=== PATIENT | female | born 1940 | race Caucasian/White ===

== ENCOUNTER 2018-01-07 12:01 | Inpatient (IN) ==
[2018-01-07] MEDS ORDERED: *HR* Dextrose 50 % in Water (Syg) 50 ML SYRINGE IVP PRN ×2 (12:09→15:11)
--- NOTE | 2018-01-07 12:15 | Emergency Department Note ---
Disposition Clinical Impression: JARETT (acute kidney injury), Elevated troponin, Acute hyponatremia, Cough DKA (diabetic ketoacidoses) Qualifiers: Diabetes mellitus type: type 1 Diabetes mellitus complication detail: without coma Qualified Code(s): E10.10 - Type 1 diabetes mellitus with ketoacidosis without coma Pneumonia Qualifiers: Pneumonia type: due to unspecified organism Laterality: bilateral Lung location : lower lobe of lung Qualified Code(s): J18.1 - Lobar pneumonia, unspecified organism Anemia Qualifiers: Anemia type: unspecified type Qualified Code(s): D64.9 - Anemia, unspecified Disposition: Admitted As Inpatient Condition: Serious Referrals: NONE,PCP [Primary Care Provider] - Forms: ED Satisfaction Letter, Work/School Release Time of Disposition: 14:37 General Adult HPI - General Chief complaint: ED General Medical Stated complaint: High glucose/fall Time Seen by Provider: 01/07/18 12:09 Source: patient, EMS Mode of arrival: EMS Limitations: no limitations Nursing Notes Reviewed: Yes Vital Signs Reviewed: Yes - History of Present Illness HPI Narrative: 77-year-old female insulin-dependent diabetic on an insulin pump states that she had a chest cold a few days ago and is continued to cough. The patient states that one day ago she had 2 falls with the first one being where she fell backward. She is unsure if she had her head denies LOC. The patient states that she is unsure why she fell but she did not syncopized and she did not trip on anything. In addition the patient's noted that her glucose was very elevated today with pressure being in the 500s. She called EMS at that time. The patient is alert and oriented to person and place but does seem a little confused about her history about what is going on today. The patient denies any other complaints other than a headache as well as a chest cold. Patient is coughing and states every time she coughs. Her head also hurts. She denies any anticoagulation. She denies any other complaints at this time including chest pain, difficulty breathing, abdominal pain. She admits to nausea. Patient denies any other complaints. - Related Data Home Medications Medication Instructions Recorded Confirmed Lisinopril [Lisinopril] 2.5 mg PO DAILY 01/07/18 01/07/18 Simvastatin [Zocor] 40 mg PO QPM 01/07/18 01/07/18 Tramadol HCl [Ultram] 50 mg PO BID PRN 01/07/18 01/07/18 Allergies Allergy/AdvReac Type Severity Reaction Status Date / Time aspirin [ASA] AdvReac Gastrointestinal Verified 01/07/18 12:08 Upset All systems ED: reviewed and negative except as stated. Constitutional: Reports: weakness. Denies: fever, chills ENT ED: Denies: congestion Cardiovascular: Denies: chest pain Respiratory: Reports: cough, dyspnea, sputum production. Denies: wheezes, hemoptysis Gastrointestinal: Reports: nausea. Denies: abdominal pain, vomiting, diarrhea, constipation, hematemesis, melena, hematochezia Genitourinary: Denies: urgency, dysuria Musculoskeletal: Denies: back pain, neck pain, arthralgia, myalgia Integumentary: Denies: rash Neurological: Reports: headache, weakness. Denies: numbness, paresthesias, confusion Past Medical History - Past Medical History Attestation: Yes The following information was validated with the patient. Source: patient, old records reviewed Medical history: Reports: diabetes Surgical history: Reports: non-contributory Psychiatric history: Reports: no psych history - Social History Smoking Status: Former smoker Alcohol use: Reports: none Drug use: Reports: none Physical Exam - General Limitations: no limitations General appearance: alert, in no apparent distress - Head Head exam: atraumatic, normocephalic, normal inspection - Eye Eye exam: Present: normal appearance, PERRL, EOMI - ENT ENT exam: normal exam, normal oropharynx, mucous membranes moist - Neck Neck exam: Present: normal inspection, full ROM, trachea midline - Chest Chest inspection: Present: normal inspection, symmetric chest wall rise - Respiratory Respiratory exam: Present: normal lung sounds bilaterally - Cardiovascular Cardiovascular exam: Present: regular rate, normal rhythm, normal heart sounds - Abdominal Exam Abdominal exam: Present: soft, Non-Tender. Absent: tenderness, distention, guarding, rebound, rigidity - Extremities Exam Extremities exam: Present: normal inspection, full ROM. Absent: tenderness, pedal edema - Neurological Exam Neurological exam: Present: alert - Expanded Neurological Exam Patient oriented to: Present: person, place Speech: Present: fluid speech Cranial nerves: EOM function (II, III, IV, ): Normal, facial sensation (V): Normal, facial palsy (VII): Normal Motor strength - LUE: 5/5 Motor strength - RUE: 5/5 Motor strength - LLE: 5/5 Motor strength - RLE: 5/5 Sensory exam upper extremity: light touch: Normal Sensory exam lower extremity: light touch: Normal Coma Scale Eye Opening: Spontaneous Coma Scale Motor Response: Obeys Commands Coma Scale Verbal Response: Oriented Coma Scale Total: 15 - Skin Skin exam: Present: warm, dry, intact, normal color Course Vital Signs Temperature 98.7 F 01/07/18 12:08 Pulse Rate 103 01/07/18 12:08 Respiratory Rate 18 01/07/18 12:08 Blood Pressure 127/70 01/07/18 12:08 O2 Sat by Pulse Oximetry 99 01/07/18 12:08 Temperature 98.7 F 01/07/18 12:08 Pulse Rate 103 01/07/18 12:08 Respiratory Rate 18 01/07/18 12:08 Blood Pressure 127/70 01/07/18 12:08 O2 Sat by Pulse Oximetry 99 01/07/18 12:08 Oxygen Delivery Oxygen Delivery Room Air Medical Decision Making - MDM Narrative Medical decision making narrative: Patient's workup in the emergency department demonstrates findings consistent with ketosis. The patient has an anion gap of 18-20. The patient is mildly acidotic. Patient does have an acute kidney injury as well. No previous record of kidney function. The patient is a mildly elevated troponin given the acute kidney injury we will continue to trend her troponins before the decision of heparin will be made. The patient was made aware and agrees to plan. Head CT and cervical spine CT demonstrated no acute process. We will place the patient on insulin drip at 0.1 units/KG per hour. The patient was given a second liter of fluid. She is resting comfortably at this time. Accepted by Dr. Gonzales. - Lab Data Lab results reviewed: Yes I reviewed the patient's lab results. Result diagrams: 01/07/18 12:56 01/07/18 12:56 Lab Results 01/07/18 01/07/18 01/07/18 Range/Units 12:56 12:56 12:56 WBC 7.5 (4.3-11.1) K/mcL RBC 3.42 L (3.82-4.97) M/mcL Hgb 10.8 L (11.5-15.4) g/dL Hct 32.2 L (35.3-44.9) % MCV 94.2 (83.0-100.0) fL MCH 31.6 (28.0-33.3) pg MCHC 33.5 (31.6-35.5) g/dL RDW 13.3 (11.5-14.5) % Plt Count 149 (140-400) K/mcL MPV 10.8 (9.4-12.4) fL Immature Gran % 0.9 (0-4) % Seg Neutrophils % 84.7 % Lymphocytes % 6.9 % Monocytes % 7.4 % Eosinophils % 0.0 % Basophils % 0.1 % Neutrophils # 6.4 (1.6-8.9) K/mcL Lymphocytes # 0.5 L (0.6-4.6) K/mcL Monocytes # 0.6 (0.0-1.3) K/mcL Eosinophils # 0.0 (0.0-0.6) K/mcL Basophils # 0.0 (0.0-0.2) K/mcL VBG pH (7.32-7.42) pH Units VBG pCO2 (41-51) mmHg VBG pO2 (25-50) mmHg VBG HCO3 (21-27) mEq/L Sodium 129 L (136-145) mEq/L Potassium 4.4 (3.5-5.1) mEq/L Chloride 94 L (98-107) mEq/L Carbon Dioxide 17 L (23-29) mEq/L BUN 48 H (8-23) mg/dL Creatinine 1.21 H (0.60-1.20) mg/dL Est GFR ( Amer) 52 L (> 60) Est GFR (Non-Af Amer) 43 L (> 60) BUN/Creatinine Ratio 40 H (6-26) Glucose 509 H* (70-105) mg/dL Calculated Osmolality 303 H (280-300) Lactic Acid (0.5-2.2) mmol/L Calcium 8.8 (8.6-10.3) mg/dL Magnesium 2.0 (1.6-2.6) mg/dL Troponin I 0.05 H* (< 0.04) ng/mL Beta-Hydroxybutyric Acd > 2.00 H (0.02-0.27) mmol/L Urine Color (Yellow) Urine Clarity (Clear) Urine pH (5.0-8.0) pH Units Ur Specific [place] (1.010-1.025) Urine Protein (Neg-Trace) mg/dL Urine Glucose (UA) (Normal) mg/dL Urine Ketones (Negative) mg/dL Urine Blood (Negative) Urine Nitrite (Negative) Urine Bilirubin (Negative) Urine Urobilinogen (Normal) mg/dL Ur Leukocyte Esterase (Negative) Urine Microscopic RBC (0-3) per hpf Urine Microscopic WBC (0-3) per hpf Ur Squamous Epith Cells (None-Few) per lpf Urine Bacteria (None-Few) per hpf Hyaline Casts (None-Few) per lpf Ur Culture Indicated? (NO) 01/07/18 01/07/18 01/07/18 Range/Units 12:56 13:14 13:30 WBC (4.3-11.1) K/mcL RBC (3.82-4.97) M/mcL Hgb (11.5-15.4) g/dL Hct (35.3-44.9) % MCV (83.0-100.0) fL MCH (28.0-33.3) pg MCHC (31.6-35.5) g/dL RDW (11.5-14.5) % Plt Count (140-400) K/mcL MPV (9.4-12.4) fL Immature Gran % (0-4) % Seg Neutrophils % % Lymphocytes % % Monocytes % % Eosinophils % % Basophils % % Neutrophils # (1.6-8.9) K/mcL Lymphocytes # (0.6-4.6) K/mcL Monocytes # (0.0-1.3) K/mcL Eosinophils # (0.0-0.6) K/mcL Basophils # (0.0-0.2) K/mcL VBG pH 7.37 (7.32-7.42) pH Units VBG pCO2 29 L (41-51) mmHg VBG pO2 78 H (25-50) mmHg VBG HCO3 17 L (21-27) mEq/L Sodium (136-145) mEq/L Potassium (3.5-5.1) mEq/L Chloride (98-107) mEq/L Carbon Dioxide (23-29) mEq/L BUN (8-23) mg/dL Creatinine (0.60-1.20) mg/dL Est GFR ( Amer) (> 60) Est GFR (Non-Af Amer) (> 60) BUN/Creatinine Ratio (6-26) Glucose (70-105) mg/dL Calculated Osmolality (280-300) Lactic Acid 2.0 (0.5-2.2) mmol/L Calcium (8.6-10.3) mg/dL Magnesium (1.6-2.6) mg/dL Troponin I (< 0.04) ng/mL Beta-Hydroxybutyric Acd (0.02-0.27) mmol/L Urine Color Yellow (Yellow) Urine Clarity Cloudy A (Clear) Urine pH 5.0 (5.0-8.0) pH Units Ur Specific [place] 1.029 H (1.010-1.025) Urine Protein Negative (Neg-Trace) mg/dL Urine Glucose (UA) >=1000 H (Normal) mg/dL Urine Ketones 80 H (Negative) mg/dL Urine Blood Negative (Negative) Urine Nitrite Negative (Negative) Urine Bilirubin Negative (Negative) Urine Urobilinogen Normal (Normal) mg/dL Ur Leukocyte Esterase Negative (Negative) Urine Microscopic RBC 5-15 H (0-3) per hpf Urine Microscopic WBC 0-3 (0-3) per hpf Ur Squamous Epith Cells Many H (None-Few) per lpf Urine Bacteria None Seen (None-Few) per hpf Hyaline Casts None Seen (None-Few) per lpf Ur Culture Indicated? NO (NO) - Radiology Data Radiology results reviewed: Yes I reviewed the patient's radiology results. Chest X-Ray 01/07/18 12:09 IMPRESSION: Mild bibasilar opacity, atelectasis versus pneumonia. D/ / Maico Murcia MD / Maico Murcia MD Interpreting Provider: Maico Murcia MD - EKG Data EKG #1 EKG attestation: Yes I reviewed and interpreted this EKG. EKG results narrative: Heart rate 94 beats for minute. Normal sinus rhythm. No ST elevation or ST depression noted. No previous EKG on record.
[2018-01-07 13:10] LABS: Basophils % 0.1 %; Hematocrit 32.2 % (35.3-44.9); Hemoglobin 10.8 g/dL (11.5-15.4); Immature Granulocytes % 0.9 % (0-4); Lymphocytes # 0.5 K/mcL (0.6-4.6); Lymphocytes % 6.9 %; Mean Corpuscular HGB Conc 33.5 g/dL (31.6-35.5); Mean Corpuscular Hemoglobin 31.6 pg (28.0-33.3); Mean Corpuscular Volume 94.2 fL (83.0-100.0); Mean Platelet Volume 10.8 fL (9.4-12.4); Monocytes # 0.6 K/mcL (0.0-1.3); Monocytes % 7.4 %; Neutrophils # 6.4 K/mcL (1.6-8.9); Platelet Count 149 K/mcL (140-400); Red Blood Count 3.42 M/mcL (3.82-4.97); Red Cell Distribution Width 13.3 % (11.5-14.5); Segmented Neutrophils % 84.7 %
[2018-01-07] MEDS ORDERED: 0.9 % Sodium Chloride 1,000 ML IVC ONE ×2 (13:20→13:21)
[2018-01-07 13:32] LABS: VBG HCO3 17 mEq/L (21-27); VBG PCO2 29 mmHg (41-51); VBG PH 7.37 pH Units (7.32-7.42); VBG PO2 78 mmHg (25-50)
--- NOTE | 2018-01-07 13:33 | Emergency Department Note ---
Disposition Clinical Impression: JARETT (acute kidney injury), Elevated troponin, Acute hyponatremia, Cough DKA (diabetic ketoacidoses) Qualifiers: Diabetes mellitus type: type 1 Diabetes mellitus complication detail: without coma Qualified Code(s): E10.10 - Type 1 diabetes mellitus with ketoacidosis without coma Pneumonia Qualifiers: Pneumonia type: due to unspecified organism Laterality: bilateral Lung location : lower lobe of lung Qualified Code(s): J18.1 - Lobar pneumonia, unspecified organism Anemia Qualifiers: Anemia type: unspecified type Qualified Code(s): D64.9 - Anemia, unspecified Disposition: Admitted As Inpatient Condition: Serious General Adult HPI - General Chief complaint: ED General Medical Stated complaint: High glucose/fall Time Seen by Provider: 01/07/18 12:09 Source: patient, EMS Mode of arrival: EMS Limitations: no limitations Nursing Notes Reviewed: Yes Vital Signs Reviewed: Yes - History of Present Illness HPI Narrative: I, Santy Burgos, examined this patient and my medical decision-making was reviewed with the CABINET WORKER/PA/Advanced Practice Nurse/Resident Physician. I agree with the documented findings, disposition and treatment plan as described except to the extent set forth below. 77-year-old female presents emergency Department with concerns of hyperglycemia. Family states patient has-been "sick" over the past 2-3 days with mild nausea. She fell this morning out of her bed. She is unable to give a good history regarding her case and presentation. Family states that she is become hyperglycemic the past with this she does not have a significant history of DKA. Patient has an insulin pump which she states has been functioning well and denies missing any of her doses of insulin. No other changes in her medications. No recent trauma. Patient denies chest pain, shortness of breath , cough, palpitations. Patient is fatigued during the exam, falling asleep in between questions. Initial blood sugar was greater than 500. Laboratory evaluation pending at this time patient will likely be admitted to the hospital for further evaluation of her altered mental status and hyperglycemia with concerns for DKA versus HHS. We will attempt to find the etiology of the patient's hyperglycemia. Pain Scale: 5 - Related Data Home Medications Medication Instructions Recorded Confirmed Lisinopril [Lisinopril] 2.5 mg PO DAILY 01/07/18 01/07/18 Simvastatin [Zocor] 40 mg PO QPM 01/07/18 01/07/18 Tramadol HCl [Ultram] 50 mg PO BID PRN 01/07/18 01/07/18 Allergies Allergy/AdvReac Type Severity Reaction Status Date / Time aspirin [ASA] AdvReac Gastrointestinal Verified 01/07/18 12:08 Upset Constitutional: Reports: weakness. Denies: fever, chills ENT ED: Denies: congestion Cardiovascular: Denies: chest pain Respiratory: Reports: cough, dyspnea, sputum production. Denies: wheezes, hemoptysis Gastrointestinal: Reports: nausea. Denies: abdominal pain, vomiting, diarrhea, constipation, hematemesis, melena, hematochezia Genitourinary: Denies: urgency, dysuria Musculoskeletal: Denies: back pain, neck pain, arthralgia, myalgia Integumentary: Denies: rash Neurological: Reports: headache, weakness. Denies: numbness, paresthesias, confusion Past Medical History - Past Medical History Medical history: Reports: diabetes Surgical history: Reports: non-contributory Psychiatric history: Reports: no psych history - Social History Smoking Status: Former smoker Smokeless Tobacco Status: No Alcohol use: Reports: none Drug use: Reports: none Physical Exam - General Limitations: no limitations General appearance: alert, in no apparent distress Course Vital Signs Temperature 98.7 F 01/07/18 12:08 Pulse Rate 103 01/07/18 12:08 Respiratory Rate 18 01/07/18 12:08 Blood Pressure 127/70 01/07/18 12:08 O2 Sat by Pulse Oximetry 99 01/07/18 12:08 Temperature 98.9 F 01/07/18 22:15 Pulse Rate 90 01/07/18 22:15 Respiratory Rate 20 01/07/18 22:15 Blood Pressure 122/62 01/07/18 22:15 O2 Sat by Pulse Oximetry 96 01/07/18 22:15 Oxygen Delivery Oxygen Delivery Room Air Medical Decision Making - Lab Data Result diagrams: 01/07/18 12:56 01/07/18 21:56 Lab Results 01/07/18 01/07/18 01/07/18 Range/Units 12:09 12:10 12:56 WBC 7.5 (4.3-11.1) K/mcL RBC 3.42 L (3.82-4.97) M/mcL Hgb 10.8 L (11.5-15.4) g/dL Hct 32.2 L (35.3-44.9) % MCV 94.2 (83.0-100.0) fL MCH 31.6 (28.0-33.3) pg MCHC 33.5 (31.6-35.5) g/dL RDW 13.3 (11.5-14.5) % Plt Count 149 (140-400) K/mcL MPV 10.8 (9.4-12.4) fL Immature Gran % 0.9 (0-4) % Seg Neutrophils % 84.7 % Lymphocytes % 6.9 % Monocytes % 7.4 % Eosinophils % 0.0 % Basophils % 0.1 % Neutrophils # 6.4 (1.6-8.9) K/mcL Lymphocytes # 0.5 L (0.6-4.6) K/mcL Monocytes # 0.6 (0.0-1.3) K/mcL Eosinophils # 0.0 (0.0-0.6) K/mcL Basophils # 0.0 (0.0-0.2) K/mcL VBG pH (7.32-7.42) pH Units VBG pCO2 (41-51) mmHg VBG pO2 (25-50) mmHg VBG HCO3 (21-27) mEq/L Sodium (136-145) mEq/L Potassium (3.5-5.1) mEq/L Chloride (98-107) mEq/L Carbon Dioxide (23-29) mEq/L BUN (8-23) mg/dL Creatinine (0.60-1.20) mg/dL Est GFR ( Amer) (> 60) Est GFR (Non-Af Amer) (> 60) BUN/Creatinine Ratio (6-26) Glucose (70-105) mg/dL POC Glucose 482 H* 507 H* (70-99) mg/dL Calculated Osmolality (280-300) Lactic Acid (0.5-2.2) mmol/L Calcium (8.6-10.3) mg/dL Magnesium (1.6-2.6) mg/dL Troponin I (< 0.04) ng/mL Beta-Hydroxybutyric Acd (0.02-0.27) mmol/L Urine Color (Yellow) Urine Clarity (Clear) Urine pH (5.0-8.0) pH Units Ur Specific [place] (1.010-1.025) Urine Protein (Neg-Trace) mg/dL Urine Glucose (UA) (Normal) mg/dL Urine Ketones (Negative) mg/dL Urine Blood (Negative) Urine Nitrite (Negative) Urine Bilirubin (Negative) Urine Urobilinogen (Normal) mg/dL Ur Leukocyte Esterase (Negative) Urine Microscopic RBC (0-3) per hpf Urine Microscopic WBC (0-3) per hpf Ur Squamous Epith Cells (None-Few) per lpf Urine Bacteria (None-Few) per hpf Hyaline Casts (None-Few) per lpf Ur Culture Indicated? (NO) 01/07/18 01/07/18 01/07/18 Range/Units 12:56 12:56 12:56 WBC (4.3-11.1) K/mcL RBC (3.82-4.97) M/mcL Hgb (11.5-15.4) g/dL Hct (35.3-44.9) % MCV (83.0-100.0) fL MCH (28.0-33.3) pg MCHC (31.6-35.5) g/dL RDW (11.5-14.5) % Plt Count (140-400) K/mcL MPV (9.4-12.4) fL Immature Gran % (0-4) % Seg Neutrophils % % Lymphocytes % % Monocytes % % Eosinophils % % Basophils % % Neutrophils # (1.6-8.9) K/mcL Lymphocytes # (0.6-4.6) K/mcL Monocytes # (0.0-1.3) K/mcL Eosinophils # (0.0-0.6) K/mcL Basophils # (0.0-0.2) K/mcL VBG pH (7.32-7.42) pH Units VBG pCO2 (41-51) mmHg VBG pO2 (25-50) mmHg VBG HCO3 (21-27) mEq/L Sodium 129 L (136-145) mEq/L Potassium 4.4 (3.5-5.1) mEq/L Chloride 94 L (98-107) mEq/L Carbon Dioxide 17 L (23-29) mEq/L BUN 48 H (8-23) mg/dL Creatinine 1.21 H (0.60-1.20) mg/dL Est GFR ( Amer) 52 L (> 60) Est GFR (Non-Af Amer) 43 L (> 60) BUN/Creatinine Ratio 40 H (6-26) Glucose 509 H* (70-105) mg/dL POC Glucose (70-99) mg/dL Calculated Osmolality 303 H (280-300) Lactic Acid 2.0 (0.5-2.2) mmol/L Calcium 8.8 (8.6-10.3) mg/dL Magnesium 2.0 (1.6-2.6) mg/dL Troponin I 0.05 H* (< 0.04) ng/mL Beta-Hydroxybutyric Acd > 2.00 H (0.02-0.27) mmol/L Urine Color (Yellow) Urine Clarity (Clear) Urine pH (5.0-8.0) pH Units Ur Specific [place] (1.010-1.025) Urine Protein (Neg-Trace) mg/dL Urine Glucose (UA) (Normal) mg/dL Urine Ketones (Negative) mg/dL Urine Blood (Negative) Urine Nitrite (Negative) Urine Bilirubin (Negative) Urine Urobilinogen (Normal) mg/dL Ur Leukocyte Esterase (Negative) Urine Microscopic RBC (0-3) per hpf Urine Microscopic WBC (0-3) per hpf Ur Squamous Epith Cells (None-Few) per lpf Urine Bacteria (None-Few) per hpf Hyaline Casts (None-Few) per lpf Ur Culture Indicated? (NO) 01/07/18 01/07/18 01/07/18 Range/Units 13:14 13:22 13:24 WBC (4.3-11.1) K/mcL RBC (3.82-4.97) M/mcL Hgb (11.5-15.4) g/dL Hct (35.3-44.9) % MCV (83.0-100.0) fL MCH (28.0-33.3) pg MCHC (31.6-35.5) g/dL RDW (11.5-14.5) % Plt Count (140-400) K/mcL MPV (9.4-12.4) fL Immature Gran % (0-4) % Seg Neutrophils % % Lymphocytes % % Monocytes % % Eosinophils % % Basophils % % Neutrophils # (1.6-8.9) K/mcL Lymphocytes # (0.6-4.6) K/mcL Monocytes # (0.0-1.3) K/mcL Eosinophils # (0.0-0.6) K/mcL Basophils # (0.0-0.2) K/mcL VBG pH 7.37 (7.32-7.42) pH Units VBG pCO2 29 L (41-51) mmHg VBG pO2 78 H (25-50) mmHg VBG HCO3 17 L (21-27) mEq/L Sodium (136-145) mEq/L Potassium (3.5-5.1) mEq/L Chloride (98-107) mEq/L Carbon Dioxide (23-29) mEq/L BUN (8-23) mg/dL Creatinine (0.60-1.20) mg/dL Est GFR ( Amer) (> 60) Est GFR (Non-Af Amer) (> 60) BUN/Creatinine Ratio (6-26) Glucose (70-105) mg/dL POC Glucose 494 H* 524 H* (70-99) mg/dL Calculated Osmolality (280-300) Lactic Acid (0.5-2.2) mmol/L Calcium (8.6-10.3) mg/dL Magnesium (1.6-2.6) mg/dL Troponin I (< 0.04) ng/mL Beta-Hydroxybutyric Acd (0.02-0.27) mmol/L Urine Color (Yellow) Urine Clarity (Clear) Urine pH (5.0-8.0) pH Units Ur Specific [place] (1.010-1.025) Urine Protein (Neg-Trace) mg/dL Urine Glucose (UA) (Normal) mg/dL Urine Ketones (Negative) mg/dL Urine Blood (Negative) Urine Nitrite (Negative) Urine Bilirubin (Negative) Urine Urobilinogen (Normal) mg/dL Ur Leukocyte Esterase (Negative) Urine Microscopic RBC (0-3) per hpf Urine Microscopic WBC (0-3) per hpf Ur Squamous Epith Cells (None-Few) per lpf Urine Bacteria (None-Few) per hpf Hyaline Casts (None-Few) per lpf Ur Culture Indicated? (NO) 01/07/18 Range/Units 13:30 WBC (4.3-11.1) K/mcL RBC (3.82-4.97) M/mcL Hgb (11.5-15.4) g/dL Hct (35.3-44.9) % MCV (83.0-100.0) fL MCH (28.0-33.3) pg MCHC (31.6-35.5) g/dL RDW (11.5-14.5) % Plt Count (140-400) K/mcL MPV (9.4-12.4) fL Immature Gran % (0-4) % Seg Neutrophils % % Lymphocytes % % Monocytes % % Eosinophils % % Basophils % % Neutrophils # (1.6-8.9) K/mcL Lymphocytes # (0.6-4.6) K/mcL Monocytes # (0.0-1.3) K/mcL Eosinophils # (0.0-0.6) K/mcL Basophils # (0.0-0.2) K/mcL VBG pH (7.32-7.42) pH Units VBG pCO2 (41-51) mmHg VBG pO2 (25-50) mmHg VBG HCO3 (21-27) mEq/L Sodium (136-145) mEq/L Potassium (3.5-5.1) mEq/L Chloride (98-107) mEq/L Carbon Dioxide (23-29) mEq/L BUN (8-23) mg/dL Creatinine (0.60-1.20) mg/dL Est GFR ( Amer) (> 60) Est GFR (Non-Af Amer) (> 60) BUN/Creatinine Ratio (6-26) Glucose (70-105) mg/dL POC Glucose (70-99) mg/dL Calculated Osmolality (280-300) Lactic Acid (0.5-2.2) mmol/L Calcium (8.6-10.3) mg/dL Magnesium (1.6-2.6) mg/dL Troponin I (< 0.04) ng/mL Beta-Hydroxybutyric Acd (0.02-0.27) mmol/L Urine Color Yellow (Yellow) Urine Clarity Cloudy A (Clear) Urine pH 5.0 (5.0-8.0) pH Units Ur Specific [place] 1.029 H (1.010-1.025) Urine Protein Negative (Neg-Trace) mg/dL Urine Glucose (UA) >=1000 H (Normal) mg/dL Urine Ketones 80 H (Negative) mg/dL Urine Blood Negative (Negative) Urine Nitrite Negative (Negative) Urine Bilirubin Negative (Negative) Urine Urobilinogen Normal (Normal) mg/dL Ur Leukocyte Esterase Negative (Negative) Urine Microscopic RBC 5-15 H (0-3) per hpf Urine Microscopic WBC 0-3 (0-3) per hpf Ur Squamous Epith Cells Many H (None-Few) per lpf Urine Bacteria None Seen (None-Few) per hpf Hyaline Casts None Seen (None-Few) per lpf Ur Culture Indicated? NO (NO)
[2018-01-07 13:35] LABS: Calcium 8.8 mg/dL (8.6-10.3); Potassium 4.4 mEq/L (3.5-5.1); Troponin I 0.05 ng/mL (< 0.04)
[2018-01-07] MEDS ORDERED: cefTRIAXone 1,000 MG in Water for inj. (sterile) 20 ML 10 ML IVP ONE (13:36)
[2018-01-07 14:00] LABS: Bilirubin,Urine Negative (Negative); Blood,Urine Negative (Negative); Clarity,Urine Cloudy (Clear); Color,Urine Yellow (Yellow); Glucose,Urine (UA) >=1000 mg/dL (Normal); Ketones,Urine 80 mg/dL (Negative); Leukocyte Esterase,Urine Negative (Negative); Nitrite,Urine Negative (Negative); Protein,Urine Negative (Neg-Trace); Specific Gravity,Urine 1.029 (1.010-1.025); Urobilinogen,Urine Normal (Normal)
[2018-01-07 14:02] LABS: Bacteria,Urine None Seen per hpf (None-Few); Hyaline Casts,Urine None Seen per lpf (None-Few); Squamous Epithelial Cell,Urine Many per lpf (None-Few); WBC,Urine 0-3 per hpf (0-3)
[2018-01-07] MEDS ORDERED: Aspirin 325 MG TABLET PO ONE (14:06)
[2018-01-07] MEDS ORDERED: Insulin Human Regular 100 UNIT in 0.9 % Sodium Chloride 100 ML IVC SCH ×2 (14:15→17:30)
[2018-01-07] MEDS ORDERED: D5% in 0.45% NACL 1,000 ML IVC PRN (15:11)
[2018-01-07] MEDS: 0.9 % Sodium Chloride w KCl 20 MEQ/1,000 ML MLS IVC SCH ×2 (16:11→18:31)
--- NOTE | 2018-01-07 16:14 | Internal Med History&Physical ---
Date of Encounter: 01/07/18 Time of Encounter: 16:11 Internal Medicine - H&P: HPI Chief complaint: chest pain History of present illness: Ms. Machado is a 77 year old female history of diabetes on insulin pump presents with complaint of cough. Patient also had altered mental status in by . Her bili or last few days patient has been having increased cough and some sputum production. No history of hemoptysis.. A hospital patient found to have altered mental status and lethargic. Patient found to be in DKA. Patient to be admitted for further evaluation. Patient has been assessed multiple times. Patient mental status is improving drastically. This time patient is alert orientated has no new complaint. Patient notes that she has been having a cough patient again denies hemoptysis. She notes that her insulin pump may not have been working. No history of fever, chills or rigors. She currently denies chest pain, shortness of breath or palpitations. She denies abdominal pain, nausea and vomiting. She denies orthopnea, PND or lower extremity edema. She headache, visual disturbance or focal weakness. Patient to be admitted for further evaluation. Past Med Surg Social Fam HX - Past Medical History Medical history: diabetes Psychiatric history: no psych history - Past Surgical History Surgical History: non-contributory - Social History Smoking Status: Former smoker Smokeless Tobacco Status: No Alcohol use: none Drug use: none - Additional Family History Additional family history: Family history reviewed and negative for this particular admission Internal Medicine - H&P: Meds Lisinopril [Lisinopril] 2.5 mg PO DAILY 01/07/18 [History] Simvastatin [Zocor] 40 mg PO QPM 01/07/18 [History] Tramadol HCl [Ultram] 50 mg PO BID PRN 01/07/18 [History] 3 Allergy/AdvReac Type Severity Reaction Status Date / Time aspirin [ASA] AdvReac Gastrointestinal Verified 01/07/18 12:08 Upset All Systems PM: A 10-system review of systems was performed and is negative for pertinent findings except as documented above in the HPI. Review of systems: All systems reviewed and negative except for as mentioned in history present illness - Constitutional Vitals: Temp Pulse Resp BP Pulse Ox 97.9 F 92 18 122/62 96 01/07/18 15:19 01/07/18 15:19 01/07/18 15:19 01/07/18 15:19 01/07/18 15:19 Vital signs as above. Patient evaluated in the emergency department Gen.: Initially lethargic, responsive to physical stimuli, mental status has improved response verbal stimuli HEENT: Atraumatic, normocephalic, extra movements are intact, PERRL, there is no scleral icterus Neck: JVD no pain to palpation, full range of motion Heart: Normal sinus to regular rate and rhythm Lungs: Clear to auscultation Abdomen: Soft, depressible, nontender, nondistended, positive bowel sounds, no guarding, no rigidity Musculoskeletal: Patient will functionally Neuro: Nonfocal, moves all 4 extremity is, no lateralization, cranial nerves are intact, alert and orientated 3 at this time Psychiatry: Normal affect at this time Skin: No new rash Internal Med - H&P Results - Labs CBC & Chem 7: 01/07/18 12:56 01/07/18 17:52 - Assessment and plan (1) DKA (diabetic ketoacidoses) Current Visit: Yes Status: Acute Assessment and plan: Insulin protocol has been initiated I have removed insulin pump off the patient in the emergency department. DKA protocol has been initiated, patient will need goal-directed fluid resuscitation with saline and 20 mEq of potassium Every 4 BMPs Mental status has rapidly improved, continue no checks every 4 hours Qualifiers: Diabetes mellitus type: type 1 Diabetes mellitus complication detail: without coma Qualified Code(s): E10.10 - Type 1 diabetes mellitus with ketoacidosis without coma (2) Hyponatremia Current Visit: Yes Status: Acute Assessment and plan: Pseudohyponatremia Corrected serum sodium is approximately 135 Serial BMPs (3) JARETT (acute kidney injury) Current Visit: Yes Status: Acute Assessment and plan: Elevated creatinine No previous serum creatinine for comparison Patient denies dysuria, abdominal pain or CVA tenderness Strict ins and outs, repeat BMP, avoid nephrotoxins, check renal ultrasound (4) Elevated troponin Current Visit: Yes Status: Acute Assessment and plan: Patient denies chest pain. No known cardiac history,no comparison EKG, no acute, in the setting of renal failure, hypovolemia and pulmonary infection Trend serial troponin, continues cardiac/vascular sonographer, patient is already received aspirin (5) DVT prophylaxis Current Visit: Yes Status: Acute Assessment and plan: SCD's for DVT prophylaxis (6) Cough Current Visit: Yes Status: Acute Assessment and plan: Patient was cough or sputum production. Chest x-ray shows mild basilar opacity versus atelectasis. This time patient is afebrile, without leukocytosis. We will treat empirically for acute bronchitis versus possible early pneumonia. Respiratory viral panel, blood cultures, Legionella urine, strep urine, Mycoplasma, strep throat culture - Time Spent With Patient Total time spent is greater than 50% in coordination of care (as documented) at patient's floor/unit and/or counseling patient:
[2018-01-07] MEDS: Doxycycline 100 MG in 0.9 % Sodium Chloride Mini Bag 100 ML IVPB SCH (18:16)
[2018-01-07 18:27] LABS: Troponin I 0.07 ng/mL (< 0.04)
[2018-01-07 18:31] LABS: Albumin 2.9 g/dL (3.5-5.7); Albumin/Globulin Ratio 0.8 (1.1-2.2); Bilirubin,Total 0.6 mg/dL (0.3-1.0); Calcium 8.1 mg/dL (8.6-10.3); Globulin 3.5 g/dL (2.4-3.5); Potassium 3.9 mEq/L (3.5-5.1); Total Protein 6.4 g/dL (6.4-8.9)
[2018-01-07 20:39] LABS: Adenovirus Not Detected (Not Detect); Bordetella Pertussis Not Detected (Not Detect); Chlamydophila pneumoniae Not Detected (Not Detect); Coronavirus 229E Not Detected (Not Detect); Coronavirus HKU1 Not Detected (Not Detect); Coronavirus NL63 Not Detected (Not Detect); Coronavirus OC43 Not Detected (Not Detect); Human Metapneumovirus Not Detected (Not Detect); Human Rhinovirus/Enterovirus Not Detected (Not Detect); Influenza A Subtype 2009 H1 Not Detected (Not Detect); Influenza A Untypeable Not Detected (Not Detect); Influenza B Not Detected (Not Detect); Mycoplasma pneumoniae Not Detected (Not Detect); Parainfluenza Virus 1 Not Detected (Not Detect); Parainfluenza Virus 2 Not Detected (Not Detect); Parainfluenza Virus 3 Not Detected (Not Detect); Parainfluenza Virus 4 Not Detected (Not Detect); Respiratory Syncytial Virus Not Detected (Not Detect)
[2018-01-07] MEDS: Acetaminophen 325 MG TABLET PO PRN (21:07)
[2018-01-07] MEDS ORDERED: D5% in 0.45% NACL w KCl 20 MEQ/1,000 ML MLS IVC ONE (22:12)
[2018-01-07 22:26] LABS: BUN/Creatinine Ratio 42 (6-26); Blood Urea Nitrogen 41 mg/dL (8-23); Calcium 7.9 mg/dL (8.6-10.3); Carbon Dioxide 19 mEq/L (23-29); Chloride 116 mEq/L (98-107); Glucose 187 mg/dL (70-105); Osmolality,Calculated 307 (280-300); Potassium 3.6 mEq/L (3.5-5.1); Sodium 141 mEq/L (136-145); eGFR For African Americans > 60 (> 60); eGFR For Non-African Americans 56 (> 60)
[2018-01-07] MEDS ORDERED: Melatonin 3 MG TABLET PO PRN (23:33)
[2018-01-08] MEDS: Acetaminophen 325 MG TABLET PO PRN ×2 (02:14→21:25)
[2018-01-08] MEDS: Doxycycline 100 MG in 0.9 % Sodium Chloride Mini Bag 100 ML IVPB SCH ×2 (07:04→18:01)
[2018-01-08] MEDS: Insulin LISPRO 300 UNITS/3 ML VIAL SQ SCH ×4 (08:08→21:26)
[2018-01-08] MEDS: cefTRIAXone 2,000 MG in Water for inj. (sterile) 20 ML 20 ML IVP SCH (09:22)
[2018-01-08] MEDS: *HR* OxyCODONE/APAP 5/325 TABLET PO PRN ×2 (12:46→18:00)
--- NOTE | 2018-01-08 14:55 | Internal Med Progress Note ---
Date of Encounter: 01/08/18 Time of Encounter: 11:35 - Assessment and plan (1) DKA (diabetic ketoacidoses) Current Visit: Yes Status: Resolved Assessment and plan: DKA has now resolved. Patient on sliding scale insulin at this time. We will add long-acting insulin coverage. Monitor blood sugars closely. Diabetic diet. Qualifiers: Diabetes mellitus type: type 1 Diabetes mellitus complication detail: without coma Qualified Code(s): E10.10 - Type 1 diabetes mellitus with ketoacidosis without coma (2) JARETT (acute kidney injury) Current Visit: Yes Status: Acute Assessment and plan: Improving. Creatinine 0.97 yesterday evening. (3) Elevated troponin Current Visit: Yes Status: Acute Assessment and plan: Troponin trended down. 0.05 today. No chest pain. (4) Cough Current Visit: Yes Status: Acute Assessment and plan: Acute bronchitis. Being treated with ceftriaxone and doxycycline. Respiratory infection panel was negative. Will complete 5 day antibiotic course. (5) Hyponatremia Current Visit: Yes Status: Resolved Assessment and plan: Resolved with hydration. (6) DVT prophylaxis Current Visit: Yes Status: Acute Assessment and plan: Will place patient on subcutaneous heparin (7) Right ear pain Current Visit: Yes Status: Acute Assessment and plan: Acute right ear pain. Etiology uncertain. Will treat symptomatically. Patient does not appear to have any signs of otitis externa. If this does not improve, we will consult ENT. Will monitor with patient in the hospital for another day. - Time Spent With Patient Total time spent is greater than 50% in coordination of care (as documented) at patient's floor/unit and/or counseling patient: - Subjective Interval history: Patient complains of severe right ear pain. Not associated with any tinnitus or decreased hearing. No vision changes. Does continue to have cough with some sputum. No hemoptysis. No fever or chills. - Constitutional Vitals: Temp Pulse Resp BP Pulse Ox 99.2 F 86 18 148/80 97 01/08/18 11:29 01/08/18 11:29 01/08/18 11:29 01/08/18 11:29 01/08/18 11:29 General appearance: Present: cooperative, mild distress, A&O X 3, pleasant, answers questions appropriately - ENT ENT exam: Present: mucous membranes dry, normal external ear exam Additional comments: Right tympanic membrane normal. No signs of erythema or congestion in the external auditory canal. Patient does have some impacted wax. - Neck Neck exam general surgery: Present: supple, trachea midline. Absent: lymphadenopathy - Respiratory Respiratory exam: Present: CTAB. Absent: accessory muscle use, rales, rhonchi, wheezes - Cardiovascular Cardiovascular exam: Present: RRR, +S1, +S2. Absent: diastolic murmur, gallop, rubs, systolic murmur - Extremities Exam Extremities exam: Present: warm, radial pulses palpable and symmetrical. Absent : calf tenderness, cyanotic, pedal edema - Neurological Exam Neurological exam: Present: alert, oriented X3, no focal deficits. Absent: facial droop, speech deficit - Skin Skin exam: Present: dry, intact Internal Medicine: Result - Labs CBC & Chem 7: 01/07/18 12:56 01/07/18 21:56 Labs: BMP 01/07/18 01/07/18 17:52 21:56 Sodium 137 141 Potassium 3.9 3.6 Chloride 107 116 H Carbon Dioxide 15 L 19 L BUN 46 H 41 H Creatinine 1.20 0.97 Glucose 402 H 187 H Calcium 8.1 L 7.9 L Cardiac Enzymes 01/07/18 01/08/18 01/08/18 Range/Units 17:52 00:32 05:35 Troponin I 0.07 H* 0.04 H* 0.05 H* (< 0.04) ng/mL Liver Function 01/07/18 Range/Units 17:52 Total Bilirubin 0.6 (0.3-1.0) mg/dL AST 35 (13-39) Units/L ALT 41 (7-52) Units/L Alkaline Phosphatase 109 H (34-104) Units/L Albumin 2.9 L (3.5-5.7) g/dL - VTE Documentation of Mechanical Device: Intermittent pneumatic compression device Consult Discharge Plan - Plan Referrals: NONE,PCP [Primary Care Provider] -
[2018-01-08] MEDS ORDERED: traMADol 50 MG TABLET PO PRN (14:58)
[2018-01-08] MEDS: Insulin DETEMIR 100 UNIT/ML X5UNITS SQ SCH ×2 (15:34→21:24)
[2018-01-09] MEDS: Acetaminophen 325 MG TABLET PO PRN (04:30)
[2018-01-09 05:29] LABS: Basophils % 0.3 %; Eosinophils % 0.1 %; Hematocrit 31.6 % (35.3-44.9); Hemoglobin 10.7 g/dL (11.5-15.4); Immature Granulocytes % 2.1 % (0-4); Lymphocytes # 2.3 K/mcL (0.6-4.6); Lymphocytes % 23.5 %; Mean Corpuscular HGB Conc 33.9 g/dL (31.6-35.5); Mean Corpuscular Hemoglobin 31.6 pg (28.0-33.3); Mean Corpuscular Volume 93.2 fL (83.0-100.0); Mean Platelet Volume 10.4 fL (9.4-12.4); Monocytes # 1.4 K/mcL (0.0-1.3); Monocytes % 14.1 %; Neutrophils # 5.9 K/mcL (1.6-8.9); Platelet Count 198 K/mcL (140-400); Red Blood Count 3.39 M/mcL (3.82-4.97); Red Cell Distribution Width 13.7 % (11.5-14.5); Segmented Neutrophils % 59.9 %
[2018-01-09 05:57] LABS: BUN/Creatinine Ratio 45 (6-26); Blood Urea Nitrogen 35 mg/dL (8-23); Calcium 8.7 mg/dL (8.6-10.3); Carbon Dioxide 22 mEq/L (23-29); Chloride 107 mEq/L (98-107); Glucose 56 mg/dL (70-105); Osmolality,Calculated 290 (280-300); Potassium 3.3 mEq/L (3.5-5.1); Sodium 137 mEq/L (136-145); eGFR For African Americans > 60 (> 60); eGFR For Non-African Americans > 60 (> 60)
[2018-01-09] MEDS: Doxycycline 100 MG in 0.9 % Sodium Chloride Mini Bag 100 ML IVPB SCH (06:16)
[2018-01-09] MEDS: Insulin LISPRO 300 UNITS/3 ML VIAL SQ SCH ×4 (07:34→20:32)
[2018-01-09] MEDS: cefTRIAXone 2,000 MG in Water for inj. (sterile) 20 ML 20 ML IVP SCH (07:43)
[2018-01-09] MEDS: Insulin DETEMIR 100 UNIT/ML X5UNITS SQ SCH (11:30)
[2018-01-09] MEDS: *HR* OxyCODONE/APAP 5/325 TABLET PO PRN ×2 (13:13→17:09)
--- NOTE | 2018-01-09 15:43 | Discharge Summary ---
- NOTES TO OUTPATIENT PROVIDER Notes to Outpatient Provider: Patient admitted here with DKA. Due to incorrect use of insulin pump. Now resolved. Follow up with PCP for further management of diabetes. Patient also developed right ear pain. Etiology uncertain. No signs of otitis externa. We will arrange for follow-up with ENT. Uncontrolled hypertension. Increase dosage of lisinopril. Follow up as outpatient with PCP Orders not resulted at time of discharge: Pending orders 01/07/18 16:17 Mycoplasma pneumoniae IgG IgM Stat Date of Encounter: 01/10/18 Time of Encounter: 15:37 - Discharge Diagnosis (1) DKA (diabetic ketoacidoses) Priority: Primary Status: Resolved Qualifiers: Diabetes mellitus type: type 1 Diabetes mellitus complication detail: without coma Qualified Code(s): E10.10 - Type 1 diabetes mellitus with ketoacidosis without coma (2) JARETT (acute kidney injury) Priority: Secondary Status: Acute (3) Elevated troponin Priority: Secondary Status: Acute (4) Cough Priority: Secondary Status: Acute (5) Hyponatremia Priority: Secondary Status: Resolved (6) DVT prophylaxis Priority: Secondary Status: Acute (7) Right ear pain Priority: Secondary Status: Acute Hospital course: Ms. Machado is a 77 year old female patient with a history of diabetes on an insulin pump who was hospitalized here with DKA and acute bronchitis. She was treated for DKA with IV insulin and transition to subcutaneous insulin once her DKA resolved. She was also treated for bronchitis with antibiotics. She has been complaining of right-sided ear pain that is intermittent and sharp and shooting. Not associated with any occult hearing or tinnitus. Ear examination did not show any signs of otitis externa. Being treated symptomatically with good response. I discussed this with ENT and they recommended follow-up with ENT as outpatient. Could be TMJ syndrome. Recommended to avoid chewing gum and uses a dental guard while sleeping. Patient has had elevated blood pressures here intermittently. I have increased her lisinopril dosage to 5 mg daily. She can follow-up for further management with her primary care provider. Discharge discussed with: patient, nurse - Time Spent with Patient Total time spent providing and/or coordinating discharge services: Greater than 30 minutes (35 min) - Discharge Medications Prescriptions: OxyCODONE/APAP 5/325 [Percocet 5/325 MG] 1 each PO Q4HR PRN 3 Days #10 tablet PRN Reason: Moderate Pain Azithromycin [Azithromycin 6-Tab Pack] 250 mg PO PER PKG DI #6 tab Lisinopril [Zestril] 5 mg PO DAILY #30 tablet Home Medications: Simvastatin [Zocor] 40 mg PO QPM 01/07/18 [History] Tramadol HCl [Ultram] 50 mg PO BID PRN 01/07/18 [History] Azithromycin [Azithromycin 6-Tab Pack] 250 mg PO PER PKG DI #6 tab 01/09/18 [Rx] Lisinopril [Zestril] 5 mg PO DAILY #30 tablet 01/09/18 [Rx] OxyCODONE/APAP 5/325 [Percocet 5/325 MG] 1 each PO Q4HR PRN 3 Days #10 tablet [Rx] Allergies/Adverse Reactions: 3 Allergy/AdvReac Type Severity Reaction Status Date / Time aspirin [ASA] AdvReac Gastrointestinal Verified 01/07/18 12:08 Upset Date of admission: 01/07/18 15:13 Primary care physician: PCP NONE Consults: 01/07/18 17:22 Consult to Nutrition [CONS] Routine Comment: Consulting Provider: NUTRITION Reason for Dietary Consult: PO Supplementation Consult to Pastoral Services [CONS] Routine Comment: 01/08/18 14:59 Consult to Physical Therapy [CONS] Routine Comment: Evaluate, develop and implement POC Reason for Consult: Gen weakness Does patient have active BEDREST order?: No Is patient medically & hemodynamically stable?: Yes Discharging clinician: Lacie Garcia Anticipated date of discharge: 01/10/18 - Constitutional Vitals: Temp Pulse Resp BP Pulse Ox 98.7 F 85 18 169/90 97 01/09/18 11:01 01/09/18 15:15 01/09/18 11:01 01/09/18 11:01 01/09/18 11:01 General appearance: Present: cooperative, A&O X 3, pleasant, answers questions appropriately - ENT ENT exam: Present: normal external ear exam - Cardiovascular Cardiovascular exam: Present: RRR, +S1, +S2. Absent: diastolic murmur, gallop, rubs, systolic murmur - GI/Abdominal GI/Abdominal exam: Present: normal bowel sounds, soft, no peritoneal signs. Absent: distended, tenderness - Extremities Exam Extremities exam: Present: warm, radial pulses palpable and symmetrical. Absent : calf tenderness, cyanotic, pedal edema - Neurological Exam Neurological exam: Present: alert, oriented X3, no focal deficits. Absent: facial droop, speech deficit - Patient Status Disposition: Home, Self-Care Condition: Serious Functional capacity at discharge: independent ambulation Overall status at discharge: patient is progressing back to baseline - Discharge Instructions Instructions: Diabetes Mellitus Type 2 in Adults (DC) Follow Up With: Angelika Salgado CNP [Advanced Practice Nurse] - 01/16/18 10:15 am (JUNIOR ACCOUNTANT BOOKKEEPER IN OFFICE WITH DR. NICOLAS FROM ENT PLEASE BRING YOUR INSURANCE CARDS AND A PHOTO ID WITH YOU TO YOUR APPOINTMENT) Gabriela Naik [Non-Partnered Physician] - 01/22/18 2:40 pm Additional Instructions: Avoid chewing gum. Use dental guard while sleeping. - Diet and Activity Activity: increase activity as tolerated Diet: diabetic diet, low fat, low cholesterol, low salt diet - VTE Documentation of Mechanical Device: Intermittent pneumatic compression device
--- NOTE | 2018-01-09 17:11 | Event Note ---
Date of Encounter: 01/09/18 Time of Encounter: 17:11 Patient complaining of headache and is concerned about her blood pressure. I explained to her that this can be managed as outpatient. Patient however does not want to go home tonight. Discussed with nursing staff. We will hold discharge for now. Patient will most likely be discharged tomorrow morning.
[2018-01-09] MEDS ORDERED: Acetaminophen 325 MG TABLET PO PRN (17:15)
[2018-01-10 07:42] VITALS: BP 164/64
[2018-01-10 07:56] LABS: Mycoplasma pneumoniae IgG 1.07 U/L (<=0.09)
[2018-01-10] MEDS ORDERED: *HR* OxyCODONE/APAP 5/325 TABLET PO PRN (08:04)
[2018-01-10] MEDS: Insulin LISPRO 300 UNITS/3 ML VIAL SQ SCH (08:22)
[2018-01-10] MEDS ORDERED: Insulin DETEMIR 100 UNIT/ML X5UNITS SQ SCH (09:00)
--- NOTE | 2018-01-12 12:00 | Electrocardiograph Report ---
[place] [id number] Test Date: 2018-01-07 Pat Name: Angelica Machado Department: 102 Room: [facility] Gender: F Kier Tender: : 1940 Requested By: Kip Abreu Order Number: [id number] Reading MD: Michael Bernard Measurements Intervals [place] Rate: 94 P: 65 VT: 125 QRS: 36 QRSD: 98 T: 47 QT: 350 QTc: 402 Interpretive Statements SINUS RHYTHM POSSIBLE LEFT ATRIAL ENLARGEMENT Electronically Signed On 01-12-2018 11:59:03 EDT by Michael Bernard
== END 2018-01-10 10:11 | disposition home or self-care (01) | DRG 638 ==
LOC: EMEROO 12:01 → 2NNU 15:13 → SUATTDRO 15:13 → 2NNU 16:30 → 2ANU 01-10 00:28
PROVIDERS: ADMIT Internal Medicine; ATTEND Internal Medicine

== ENCOUNTER 2020-03-20 10:40 | Inpatient (IN) ==
[2020-03-20 11:22] LABS: Basophils % 0.2 %; Hematocrit 31.6 % (35.3-44.9); Hemoglobin 10.3 g/dL (11.5-15.4); Immature Granulocytes % 0.5 % (0-4); Lymphocytes % 9.3 %; Mean Corpuscular HGB Conc 32.6 g/dL (31.6-35.5); Mean Corpuscular Hemoglobin 31.5 pg (28.0-33.3); Mean Corpuscular Volume 96.6 fL (83.0-100.0); Mean Platelet Volume 9.4 fL (9.4-12.4); Monocytes # 0.7 K/mcL (0.0-1.3); Monocytes % 6.6 %; Neutrophils # 9.3 K/mcL (1.6-8.9); Platelet Count 220 K/mcL (140-400); Red Blood Count 3.27 M/mcL (3.82-4.97); Red Cell Distribution Width 13.2 % (11.5-14.5); Segmented Neutrophils % 83.4 %; White Blood Count 11.1 K/mcL (4.3-11.1)
[2020-03-20 11:52] LABS: Troponin I 0.04 ng/mL (< 0.04)
[2020-03-20 11:59] LABS: Calcium 9.7 mg/dL (8.6-10.3); Potassium 4.8 mEq/L (3.5-5.1)
[2020-03-20] MEDS ORDERED: D5% in Water 1,000 ML IVC PRN (15:17)
[2020-03-20] MEDS ORDERED: Dextrose Gel 15 GM/37.5 ML TUBE PO PRN ×2 (15:17)
[2020-03-20] MEDS ORDERED: *HR* Dextrose 50 % in Water (Vial) 50 ML VIAL IVP PRN (15:17)
[2020-03-20] MEDS ORDERED: 0.9 % Sodium Chloride 1,000 ML IVC SCH (15:30)
[2020-03-20] MEDS: Insulin LISPRO 300 UNITS/3 ML VIAL SQ SCH (21:49)
[2020-03-21 01:28] LABS: Basophils % 0.1 %; Eosinophils % 0.2 %; Hematocrit 26.9 % (35.3-44.9); Hemoglobin 8.9 g/dL (11.5-15.4); Immature Granulocytes % 0.4 % (0-4); Lymphocytes # 1.3 K/mcL (0.6-4.6); Lymphocytes % 15.5 %; Mean Corpuscular HGB Conc 33.1 g/dL (31.6-35.5); Mean Corpuscular Hemoglobin 31.6 pg (28.0-33.3); Mean Corpuscular Volume 95.4 fL (83.0-100.0); Mean Platelet Volume 9.5 fL (9.4-12.4); Monocytes # 0.9 K/mcL (0.0-1.3); Monocytes % 10.9 %; Neutrophils # 5.9 K/mcL (1.6-8.9); Platelet Count 203 K/mcL (140-400); Red Blood Count 2.82 M/mcL (3.82-4.97); Red Cell Distribution Width 13.2 % (11.5-14.5); Segmented Neutrophils % 72.9 %; White Blood Count 8.2 K/mcL (4.3-11.1)
[2020-03-21 01:49] LABS: BUN/Creatinine Ratio 50 (6-26); Blood Urea Nitrogen 48 mg/dL (8-23); Calcium 8.3 mg/dL (8.6-10.3); Carbon Dioxide 23 mEq/L (23-29); Chloride 98 mEq/L (98-107); Glucose 354 mg/dL (70-105); Magnesium 1.7 mg/dL (1.6-2.6); Osmolality,Calculated 297 (280-300); Phosphorous 3.1 mg/dL (2.7-4.5); Potassium 4.6 mEq/L (3.5-5.1); Sodium 130 mEq/L (136-145); eGFR For African Americans > 60 (> 60); eGFR For Non-African Americans 56 (> 60)
[2020-03-21] MEDS: Insulin LISPRO 300 UNITS/3 ML VIAL SQ SCH ×4 (08:24→21:18)
[2020-03-21 09:47] LABS: Hematocrit 27.6 % (35.3-44.9)
[2020-03-21] MEDS: Insulin DETEMIR 100 UNIT/ML X5UNITS SQ SCH (10:23)
[2020-03-21 12:19] LABS: Bacteria,Urine Few per hpf (None-Few); Bilirubin,Urine Negative (Negative); Blood,Urine Negative (Negative); Clarity,Urine Clear (Clear); Color,Urine Light-Yellow (Yellow); Glucose,Urine (UA) >=1000 mg/dL (Normal); Ketones,Urine 20 mg/dL (Negative); Leukocyte Esterase,Urine Small (Negative); Mucus,Urine Few per lpf (None-Few); Nitrite,Urine Negative (Negative); PH,Urine 5.5 pH Units (5.0-8.0); Protein,Urine Negative (Neg-Trace); RBC,Urine 0-3 per hpf (0-3); Specific Gravity,Urine 1.027 (1.010-1.025); Squamous Epithelial Cell,Urine Few per hpf (None-Few); Urobilinogen,Urine Normal (Normal)
[2020-03-22] MEDS: Insulin DETEMIR 100 UNIT/ML X5UNITS SQ SCH ×2 (07:38→20:54)
[2020-03-22] MEDS: Insulin LISPRO 300 UNITS/3 ML VIAL SQ SCH ×4 (07:38→20:39)
[2020-03-22 09:36] LABS: Basophils % 0.3 %; Eosinophils # 0.1 K/mcL (0.0-0.6); Eosinophils % 1.7 %; Hematocrit 29.5 % (35.3-44.9); Hemoglobin 9.7 g/dL (11.5-15.4); Immature Granulocytes % 1.1 % (0-4); Lymphocytes # 1.4 K/mcL (0.6-4.6); Lymphocytes % 21.2 %; Mean Corpuscular HGB Conc 32.9 g/dL (31.6-35.5); Mean Corpuscular Hemoglobin 32.7 pg (28.0-33.3); Mean Corpuscular Volume 99.3 fL (83.0-100.0); Mean Platelet Volume 9.6 fL (9.4-12.4); Monocytes # 0.6 K/mcL (0.0-1.3); Monocytes % 9.8 %; Neutrophils # 4.3 K/mcL (1.6-8.9); Platelet Count 231 K/mcL (140-400); Red Blood Count 2.97 M/mcL (3.82-4.97); Red Cell Distribution Width 13.2 % (11.5-14.5); Segmented Neutrophils % 65.9 %; White Blood Count 6.6 K/mcL (4.3-11.1)
[2020-03-22 09:50] LABS: BUN/Creatinine Ratio 42 (6-26); Blood Urea Nitrogen 41 mg/dL (8-23); Carbon Dioxide 23 mEq/L (23-29); Chloride 99 mEq/L (98-107); Glucose 454 mg/dL (70-105); Magnesium 1.6 mg/dL (1.6-2.6); Osmolality,Calculated 302 (280-300); Sodium 131 mEq/L (136-145); eGFR For African Americans > 60 (> 60); eGFR For Non-African Americans 55 (> 60)
[2020-03-22] MEDS ORDERED: Insulin DETEMIR 100 UNIT/ML X5UNITS SQ ONE (11:08)
[2020-03-22] MEDS: *HR* Enoxaparin 60 MG/0.6 ML SYRINGE SQ SCH (18:09)
[2020-03-23] MEDS: *HR* Enoxaparin 60 MG/0.6 ML SYRINGE SQ SCH (04:42)
[2020-03-23 04:53] LABS: BUN/Creatinine Ratio 37 (6-26); Blood Urea Nitrogen 29 mg/dL (8-23); Calcium 8.5 mg/dL (8.6-10.3); Carbon Dioxide 30 mEq/L (23-29); Chloride 100 mEq/L (98-107); Glucose 103 mg/dL (70-105); Osmolality,Calculated 284 (280-300); Sodium 134 mEq/L (136-145); eGFR For African Americans > 60 (> 60); eGFR For Non-African Americans > 60 (> 60)
[2020-03-23] MEDS: Insulin LISPRO 300 UNITS/3 ML VIAL SQ SCH ×4 (08:59→17:44)
[2020-03-23] MEDS: Insulin DETEMIR 100 UNIT/ML X5UNITS SQ SCH ×2 (09:00→20:06)
[2020-03-23] MEDS ORDERED: Insulin LISPRO 300 UNITS/3 ML VIAL SQ SCH (13:50)
[2020-03-23] MEDS: Apixaban 5 MG TABLET PO SCH (20:06)
[2020-03-24 05:03] LABS: BUN/Creatinine Ratio 33 (6-26); Blood Urea Nitrogen 21 mg/dL (8-23); Calcium 8.3 mg/dL (8.6-10.3); Carbon Dioxide 29 mEq/L (23-29); Chloride 98 mEq/L (98-107); Glucose 117 mg/dL (70-105); Osmolality,Calculated 282 (280-300); Potassium 4.3 mEq/L (3.5-5.1); Sodium 134 mEq/L (136-145); eGFR For African Americans > 60 (> 60); eGFR For Non-African Americans > 60 (> 60)
[2020-03-24] MEDS: Apixaban 5 MG TABLET PO SCH (07:59)
[2020-03-24] MEDS: Insulin LISPRO 300 UNITS/3 ML VIAL SQ SCH ×3 (08:00→11:56)
[2020-03-24] MEDS ORDERED: Insulin DETEMIR 100 UNIT/ML X5UNITS SQ SCH (09:00)
[2020-03-24 11:52] VITALS: BP 125/74
[2020-03-29] MEDS ORDERED: Apixaban 5 MG TABLET PO SCH (21:00)
== END 2020-03-24 13:48 | disposition other institution (70) | DRG 638 ==
LOC: EMEROOARM 10:40 → 2ANU 10:40 → SUATTDRO 03-21 16:26
PROVIDERS: ADMIT Internal Medicine; ATTEND Internal Medicine

== ENCOUNTER 2020-05-13 11:56 | Inpatient (IN) ==
[2020-05-13 13:04] LABS: Hematocrit 35.1 % (35.3-44.9); Hemoglobin 10.3 g/dL (11.5-15.4); Mean Corpuscular HGB Conc 29.3 g/dL (31.6-35.5); Mean Corpuscular Hemoglobin 32.6 pg (28.0-33.3); Mean Corpuscular Volume 111.1 fL (83.0-100.0); Mean Platelet Volume 9.9 fL (9.4-12.4); Platelet Count 193 K/mcL (140-400); Red Blood Count 3.16 M/mcL (3.82-4.97); Red Cell Distribution Width 15.2 % (11.5-14.5); White Blood Count 9.5 K/mcL (4.3-11.1)
[2020-05-13 13:06] LABS: VBG HCO3 13 mEq/L (21-27); VBG PCO2 27 mmHg (41-51); VBG PH 7.31 pH Units (7.32-7.42); VBG PO2 114 mmHg (25-50)
[2020-05-13] MEDS ORDERED: 0.9 % Sodium Chloride 1,000 ML IVC ONE ×2 (13:39→13:57)
[2020-05-13 13:56] LABS: Albumin 3.7 g/dL (3.5-5.7); Albumin/Globulin Ratio 1.2 (1.1-2.2); Bilirubin,Total 0.8 mg/dL (0.3-1.0); Calcium 9.4 mg/dL (8.6-10.3); Globulin 3.2 g/dL (2.4-3.5); Magnesium 2.2 mg/dL (1.6-2.6); Potassium 6.1 mEq/L (3.5-5.1); Total Protein 6.9 g/dL (6.4-8.9)
[2020-05-13] MEDS ORDERED: D5% in 0.45% NACL w KCl 20 MEQ/1,000 ML MLS IVC PRN (14:03)
[2020-05-13] MEDS ORDERED: D5% in 0.45% NACL 1,000 ML IVC PRN (14:03)
[2020-05-13 14:09] LABS: Lymphocytes # 1.5 K/mcL (0.6-4.6); Monocytes # 0.4 K/mcL (0.0-1.3); Neutrophils # 7.6 K/mcL (1.6-8.9)
[2020-05-13 14:11] LABS: Macrocytosis Present (Not Present)
[2020-05-13 14:12] LABS: Platelet Estimate Normal (Normal)
[2020-05-13] MEDS ORDERED: Insulin Human Regular 100 UNIT in 0.9 % Sodium Chloride 100 ML IVC SCH (14:15)
[2020-05-13] MEDS ORDERED: 0.9 % Sodium Chloride 1,000 ML IVC SCH (14:15)
[2020-05-13 14:44] LABS: Bilirubin,Urine Negative (Negative); Blood,Urine Negative (Negative); Clarity,Urine Clear (Clear); Color,Urine Light-Yellow (Yellow); Glucose,Urine (UA) >=1000 mg/dL (Normal); Ketones,Urine 10 mg/dL (Negative); Leukocyte Esterase,Urine Negative (Negative); Mucus,Urine Few per lpf (None-Few); Nitrite,Urine Negative (Negative); Protein,Urine Negative (Neg-Trace); RBC,Urine 0-3 per hpf (0-3); Specific Gravity,Urine 1.022 (1.010-1.025); Squamous Epithelial Cell,Urine Few per hpf (None-Few); Urobilinogen,Urine Normal (Normal)
[2020-05-13] MEDS ORDERED: Naloxone 0.4 MG/ML INJ IVP PRN (15:13)
[2020-05-13 17:32] LABS: Calcium 8.6 mg/dL (8.6-10.3); Potassium 5.2 mEq/L (3.5-5.1)
[2020-05-13 20:32] LABS: Calcium 8.3 mg/dL (8.6-10.3); Potassium 4.6 mEq/L (3.5-5.1)
[2020-05-13] MEDS: 0.45 % Sodium Chloride w/KCl 20 MEQ/1,000 ML MLS IVC SCH (21:49)
[2020-05-13] MEDS: *HR* Heparin 5,000 UNIT/ML VIAL SQ SCH (21:51)
[2020-05-14 00:12] LABS: Potassium 4.7 mEq/L (3.5-5.1)
[2020-05-14] MEDS: 0.45 % Sodium Chloride w/KCl 20 MEQ/1,000 ML MLS IVC SCH ×2 (02:41→12:03)
[2020-05-14] MEDS: *HR* Heparin 5,000 UNIT/ML VIAL SQ SCH ×3 (04:09→23:47)
[2020-05-14 04:41] LABS: Basophils % 0.1 %; Hematocrit 27.6 % (35.3-44.9); Immature Granulocytes % 0.8 % (0-4); Lymphocytes # 1.3 K/mcL (0.6-4.6); Lymphocytes % 11.3 %; Mean Corpuscular HGB Conc 32.6 g/dL (31.6-35.5); Mean Corpuscular Hemoglobin 32.5 pg (28.0-33.3); Mean Platelet Volume 9.5 fL (9.4-12.4); Monocytes # 1.3 K/mcL (0.0-1.3); Monocytes % 10.7 %; Platelet Count 215 K/mcL (140-400); Red Blood Count 2.77 M/mcL (3.82-4.97); Red Cell Distribution Width 14.6 % (11.5-14.5); Segmented Neutrophils % 77.1 %; White Blood Count 11.7 K/mcL (4.3-11.1)
[2020-05-14 04:42] LABS: Mean Corpuscular Volume 99.6 fL (83.0-100.0)
[2020-05-14 04:55] LABS: Potassium 5.4 mEq/L (3.5-5.1)
[2020-05-14 08:44] LABS: VBG HCO3 23 mEq/L (21-27); VBG PCO2 40 mmHg (41-51); VBG PH 7.36 pH Units (7.32-7.42); VBG PO2 253 mmHg (25-50)
[2020-05-14 09:00] LABS: Calcium 8.4 mg/dL (8.6-10.3); Potassium 4.6 mEq/L (3.5-5.1)
[2020-05-14 12:54] LABS: VBG HCO3 23 mEq/L (21-27); VBG PCO2 41 mmHg (41-51); VBG PH 7.37 pH Units (7.32-7.42); VBG PO2 255 mmHg (25-50)
[2020-05-14 13:05] LABS: Calcium 8.5 mg/dL (8.6-10.3); Potassium 3.8 mEq/L (3.5-5.1)
[2020-05-14] MEDS ORDERED: Dextrose Gel 15 GM/37.5 ML TUBE PO PRN ×2 (13:24)
[2020-05-14] MEDS ORDERED: *HR* Dextrose 50 % in Water (Vial) 50 ML VIAL IVP PRN (13:24)
[2020-05-14] MEDS ORDERED: D5% in Water 1,000 ML IVC PRN (13:24)
[2020-05-14] MEDS ORDERED: Insulin DETEMIR 100 UNIT/ML X5UNITS SQ SCH (13:25)
[2020-05-14] MEDS: *HR* Dextrose 50 % in Water (Vial) 50 ML VIAL IVP PRN (13:36)
[2020-05-14] MEDS ORDERED: 0.9 % Sodium Chloride 1,000 ML IVC SCH (13:45)
[2020-05-14] MEDS: Insulin DETEMIR 100 UNIT/ML X5UNITS SQ SCH ×2 (14:45→20:15)
[2020-05-14] MEDS: Insulin LISPRO 300 UNITS/3 ML VIAL SQ SCH (20:15)
[2020-05-15] MEDS: *HR* Heparin 5,000 UNIT/ML VIAL SQ SCH ×3 (04:46→21:28)
[2020-05-15 04:56] LABS: Basophils % 0.1 %; Eosinophils % 0.2 %; Hemoglobin 9.4 g/dL (11.5-15.4); Immature Granulocytes % 0.2 % (0-4); Lymphocytes # 1.8 K/mcL (0.6-4.6); Lymphocytes % 21.7 %; Mean Corpuscular HGB Conc 32.4 g/dL (31.6-35.5); Mean Corpuscular Hemoglobin 31.6 pg (28.0-33.3); Mean Corpuscular Volume 97.6 fL (83.0-100.0); Mean Platelet Volume 9.4 fL (9.4-12.4); Monocytes # 0.8 K/mcL (0.0-1.3); Monocytes % 8.9 %; Neutrophils # 5.8 K/mcL (1.6-8.9); Platelet Count 200 K/mcL (140-400); Red Blood Count 2.97 M/mcL (3.82-4.97); Red Cell Distribution Width 15.2 % (11.5-14.5); Segmented Neutrophils % 68.9 %; White Blood Count 8.4 K/mcL (4.3-11.1)
[2020-05-15 05:02] LABS: BUN/Creatinine Ratio 48 (6-26); Blood Urea Nitrogen 47 mg/dL (8-23); Calcium 8.7 mg/dL (8.6-10.3); Carbon Dioxide 24 mEq/L (23-29); Chloride 107 mEq/L (98-107); Glucose 158 mg/dL (70-105); Osmolality,Calculated 300 (280-300); Potassium 3.9 mEq/L (3.5-5.1); Sodium 137 mEq/L (136-145); eGFR For African Americans > 60 (> 60); eGFR For Non-African Americans 55 (> 60)
[2020-05-15] MEDS: Insulin LISPRO 300 UNITS/3 ML VIAL SQ SCH ×5 (07:53→20:47)
[2020-05-15] MEDS: Insulin DETEMIR 100 UNIT/ML X5UNITS SQ SCH (20:47)
[2020-05-16 01:13] LABS: Basophils % 0.2 %; Eosinophils % 0.5 %; Hematocrit 32.2 % (35.3-44.9); Hemoglobin 10.3 g/dL (11.5-15.4); Immature Granulocytes % 0.4 % (0-4); Lymphocytes # 1.9 K/mcL (0.6-4.6); Lymphocytes % 34.5 %; Mean Corpuscular Hemoglobin 31.2 pg (28.0-33.3); Mean Corpuscular Volume 97.6 fL (83.0-100.0); Mean Platelet Volume 9.9 fL (9.4-12.4); Monocytes # 0.6 K/mcL (0.0-1.3); Monocytes % 11.5 %; Neutrophils # 2.9 K/mcL (1.6-8.9); Platelet Count 198 K/mcL (140-400); Red Cell Distribution Width 14.7 % (11.5-14.5); Segmented Neutrophils % 52.9 %; White Blood Count 5.5 K/mcL (4.3-11.1)
[2020-05-16 01:31] LABS: BUN/Creatinine Ratio 36 (6-26); Blood Urea Nitrogen 28 mg/dL (8-23); Calcium 9.1 mg/dL (8.6-10.3); Carbon Dioxide 27 mEq/L (23-29); Chloride 102 mEq/L (98-107); Glucose 291 mg/dL (70-105); Osmolality,Calculated 300 (280-300); Potassium 3.7 mEq/L (3.5-5.1); Sodium 137 mEq/L (136-145); eGFR For African Americans > 60 (> 60); eGFR For Non-African Americans > 60 (> 60)
[2020-05-16] MEDS: *HR* Heparin 5,000 UNIT/ML VIAL SQ SCH ×3 (05:19→20:45)
[2020-05-16] MEDS: Insulin LISPRO 300 UNITS/3 ML VIAL SQ SCH ×4 (07:53→20:44)
[2020-05-16] MEDS ORDERED: Acetaminophen 325 MG TABLET PO PRN (19:50)
[2020-05-16] MEDS: Insulin DETEMIR 100 UNIT/ML X5UNITS SQ SCH (20:44)
[2020-05-17] MEDS: *HR* Heparin 5,000 UNIT/ML VIAL SQ SCH ×3 (05:30→20:22)
[2020-05-17] MEDS: Insulin LISPRO 300 UNITS/3 ML VIAL SQ SCH ×4 (05:39→16:34)
[2020-05-17] MEDS: lisinopriL 5 MG TABLET PO SCH (07:25)
[2020-05-17] MEDS: Multivit/Ca/Min/Fe/FA 1 TAB TABLET PO SCH (07:25)
[2020-05-17] MEDS: Insulin DETEMIR 100 UNIT/ML X5UNITS SQ SCH (20:21)
[2020-05-18] MEDS: *HR* Heparin 5,000 UNIT/ML VIAL SQ SCH ×3 (04:58→22:45)
[2020-05-18 05:03] LABS: BUN/Creatinine Ratio 36 (6-26); Blood Urea Nitrogen 34 mg/dL (8-23); Calcium 8.9 mg/dL (8.6-10.3); Carbon Dioxide 27 mEq/L (23-29); Chloride 103 mEq/L (98-107); Glucose 276 mg/dL (70-105); Osmolality,Calculated 303 (280-300); Potassium 3.9 mEq/L (3.5-5.1); Sodium 138 mEq/L (136-145); eGFR For African Americans > 60 (> 60); eGFR For Non-African Americans 57 (> 60)
[2020-05-18] MEDS: lisinopriL 5 MG TABLET PO SCH (08:23)
[2020-05-18] MEDS: Multivit/Ca/Min/Fe/FA 1 TAB TABLET PO SCH (08:23)
[2020-05-18] MEDS: Insulin LISPRO 300 UNITS/3 ML VIAL SQ SCH ×3 (08:24→17:52)
[2020-05-18] MEDS ORDERED: Insulin LISPRO 300 UNITS/3 ML VIAL SQ STA (13:42)
[2020-05-18] MEDS ORDERED: Insulin LISPRO 300 UNITS/3 ML VIAL SQ SCH (21:00)
[2020-05-18] MEDS ORDERED: Insulin DETEMIR 100 UNIT/ML X5UNITS SQ SCH (21:00)
[2020-05-18] MEDS: *HR* Dextrose 50 % in Water (Vial) 50 ML VIAL IVP PRN ×2 (21:12→23:28)
[2020-05-19 02:12] LABS: BUN/Creatinine Ratio 37 (6-26); Blood Urea Nitrogen 31 mg/dL (8-23); Calcium 8.9 mg/dL (8.6-10.3); Carbon Dioxide 25 mEq/L (23-29); Chloride 101 mEq/L (98-107); Glucose 300 mg/dL (70-105); Osmolality,Calculated 300 (280-300); Potassium 3.9 mEq/L (3.5-5.1); Sodium 136 mEq/L (136-145); eGFR For African Americans > 60 (> 60); eGFR For Non-African Americans > 60 (> 60)
[2020-05-19] MEDS ORDERED: Insulin DETEMIR 100 UNIT/ML X5UNITS SQ ONE (02:16)
[2020-05-19] MEDS ORDERED: Insulin LISPRO 300 UNITS/3 ML VIAL SQ ONE ×2 (02:17→05:24)
[2020-05-19] MEDS ORDERED: Insulin Human Regular 7 UNIT in 0.9 % Sodium Chloride 10 ML IV ONE (05:23)
[2020-05-19] MEDS: *HR* Heparin 5,000 UNIT/ML VIAL SQ SCH ×2 (05:52→14:51)
[2020-05-19] MEDS: lisinopriL 5 MG TABLET PO SCH (08:12)
[2020-05-19] MEDS: Multivit/Ca/Min/Fe/FA 1 TAB TABLET PO SCH (08:12)
[2020-05-19] MEDS: Insulin LISPRO 300 UNITS/3 ML VIAL SQ SCH (08:13)
[2020-05-19 10:34] LABS: Estimated Average Glucose 212 mg/dl
[2020-05-19 11:13] VITALS: BP 137/85
== END 2020-05-19 15:45 | disposition home health service (06) | DRG 637 ==
LOC: EMEROOARM 11:56 → 2NNU 11:56 → SUATTDRO 14:34 → 2NNU 15:54 → 2ANU 05-16 13:35
PROVIDERS: ADMIT Internal Medicine; ATTEND Internal Medicine

== ENCOUNTER 2020-06-14 21:18 | Inpatient (IN) ==
[2020-06-14 22:15] LABS: Basophils % 0.4 %; Eosinophils % 0.6 %; Hematocrit 35.9 % (35.3-44.9); Hemoglobin 11.6 g/dL (11.5-15.4); Immature Granulocytes % 0.8 % (0-4); Lymphocytes % 19.8 %; Mean Corpuscular HGB Conc 32.3 g/dL (31.6-35.5); Mean Corpuscular Volume 99.2 fL (83.0-100.0); Monocytes # 0.7 K/mcL (0.0-1.3); Monocytes % 12.9 %; Neutrophils # 3.5 K/mcL (1.6-8.9); Platelet Count 231 K/mcL (140-400); Red Blood Count 3.62 M/mcL (3.82-4.97); Red Cell Distribution Width 14.5 % (11.5-14.5); Segmented Neutrophils % 65.5 %; White Blood Count 5.3 K/mcL (4.3-11.1)
[2020-06-14 22:31] LABS: Bilirubin,Urine Negative (Negative); Blood,Urine Negative (Negative); Clarity,Urine Clear (Clear); Color,Urine Yellow (Yellow); Glucose,Urine (UA) >=1000 mg/dL (Normal); Hyaline Casts,Urine Few per lpf (None Seen); Ketones,Urine Negative (Negative); Leukocyte Esterase,Urine Negative (Negative); Mucus,Urine Few per lpf (None-Few); Nitrite,Urine Negative (Negative); Protein,Urine Negative (Neg-Trace); RBC,Urine 0-3 per hpf (0-3); Specific Gravity,Urine 1.009 (1.010-1.025); Squamous Epithelial Cell,Urine Few per hpf (None-Few); Urobilinogen,Urine Normal (Normal); WBC,Urine 0-3 per hpf (0-3)
[2020-06-14 22:37] LABS: Alanine Aminotransferase 35 Units/L (7-52); Albumin 4.1 g/dL (3.5-5.7); Albumin/Globulin Ratio 1.2 (1.1-2.2); Alkaline Phosphatase 97 Units/L (34-104); Aspartate Amino Transferase 48 Units/L (13-39); BUN/Creatinine Ratio 28 (6-26); Bilirubin,Direct 0.1 mg/dL (0.0-0.2); Bilirubin,Indirect 0.4 mg/dL (0.0-1.0); Bilirubin,Total 0.5 mg/dL (0.3-1.0); Blood Urea Nitrogen 29 mg/dL (8-23); Calcium 9.4 mg/dL (8.6-10.3); Carbon Dioxide 25 mEq/L (23-29); Chloride 98 mEq/L (98-107); Globulin 3.3 g/dL (2.4-3.5); Glucose 166 mg/dL (70-105); Magnesium 1.8 mg/dL (1.6-2.6); Osmolality,Calculated 288 (280-300); Potassium 4.1 mEq/L (3.5-5.1); Sodium 134 mEq/L (136-145); Total Protein 7.4 g/dL (6.4-8.9); Troponin I < 0.03 ng/mL (< 0.04); eGFR For African Americans > 60 (> 60); eGFR For Non-African Americans 52 (> 60)
[2020-06-15 00:43] LABS: Adenovirus Not Detected (Not Detect); Bordetella Pertussis Not Detected (Not Detect); Chlamydophila pneumoniae Not Detected (Not Detect); Coronavirus 229E Not Detected (Not Detect); Coronavirus HKU1 Not Detected (Not Detect); Coronavirus NL63 Not Detected (Not Detect); Coronavirus OC43 Not Detected (Not Detect); Human Metapneumovirus Not Detected (Not Detect); Human Rhinovirus/Enterovirus Not Detected (Not Detect); Influenza A Subtype 2009 H1 Not Detected (Not Detect); Influenza B Not Detected (Not Detect); Mycoplasma pneumoniae Not Detected (Not Detect); Parainfluenza Virus 1 Not Detected (Not Detect); Parainfluenza Virus 2 Not Detected (Not Detect); Parainfluenza Virus 3 Not Detected (Not Detect); Parainfluenza Virus 4 Not Detected (Not Detect); Respiratory Syncytial Virus Not Detected (Not Detect); SARS-CoV-2 Not Detected (Not Detect)
[2020-06-15] MEDS ORDERED: Naloxone 0.4 MG/ML INJ IVP PRN (01:06)
[2020-06-15] MEDS ORDERED: Acetaminophen 325 MG TABLET PO PRN (01:06)
[2020-06-15] MEDS ORDERED: *HR* Promethazine 25 MG/ML VIAL IVP PRN (01:06)
[2020-06-15] MEDS ORDERED: D5% in Water 1,000 ML IVC PRN (01:08)
[2020-06-15] MEDS ORDERED: Dextrose Gel 15 GM/37.5 ML TUBE PO PRN ×2 (01:08)
[2020-06-15] MEDS: *HR* Dextrose 50 % in Water (Vial) 50 ML VIAL IVP PRN ×3 (01:47→16:43)
[2020-06-15] MEDS: Insulin LISPRO 300 UNITS/3 ML VIAL SQ SCH ×4 (01:53→16:46)
[2020-06-15] MEDS: 0.9 % Sodium Chloride 1,000 ML IVC SCH ×2 (02:24→12:46)
[2020-06-15 02:35] LABS: Hematocrit 33.4 % (35.3-44.9); Hemoglobin 10.7 g/dL (11.5-15.4); Mean Corpuscular Hemoglobin 31.9 pg (28.0-33.3); Mean Corpuscular Volume 99.7 fL (83.0-100.0); Mean Platelet Volume 8.9 fL (9.4-12.4); Platelet Count 249 K/mcL (140-400); Red Blood Count 3.35 M/mcL (3.82-4.97); Red Cell Distribution Width 14.6 % (11.5-14.5)
[2020-06-15 02:58] LABS: BUN/Creatinine Ratio 32 (6-26); Blood Urea Nitrogen 28 mg/dL (8-23); Calcium 9.2 mg/dL (8.6-10.3); Carbon Dioxide 28 mEq/L (23-29); Chloride 99 mEq/L (98-107); Glucose 112 mg/dL (70-105); Magnesium 1.7 mg/dL (1.6-2.6); Osmolality,Calculated 288 (280-300); Phosphorous 3.4 mg/dL (2.7-4.5); Potassium 4.1 mEq/L (3.5-5.1); Sodium 136 mEq/L (136-145); eGFR For African Americans > 60 (> 60); eGFR For Non-African Americans > 60 (> 60)
[2020-06-15 03:11] LABS: Thyroid Stimulating Hormone 2.779 mcIU/mL (0.340-5.600)
[2020-06-15 06:48] LABS: Estimated Average Glucose 209 mg/dl
[2020-06-15] MEDS ORDERED: Insulin DETEMIR 100 UNIT/ML X5UNITS SQ SCH (09:00)
[2020-06-15] MEDS: Insulin DETEMIR 100 UNIT/ML X5UNITS SQ SCH (10:30)
[2020-06-15] MEDS: lisinopriL 5 MG TABLET PO SCH (10:30)
[2020-06-15] MEDS ORDERED: Insulin LISPRO 300 UNITS/3 ML VIAL SQ SCH (21:00)
[2020-06-16 01:40] LABS: Basophils % 0.5 %; Eosinophils # 0.1 K/mcL (0.0-0.6); Eosinophils % 2.8 %; Hematocrit 31.2 % (35.3-44.9); Immature Granulocytes % 0.2 % (0-4); Lymphocytes # 1.8 K/mcL (0.6-4.6); Lymphocytes % 42.2 %; Mean Corpuscular HGB Conc 32.1 g/dL (31.6-35.5); Mean Corpuscular Hemoglobin 31.8 pg (28.0-33.3); Mean Corpuscular Volume 99.4 fL (83.0-100.0); Mean Platelet Volume 9.2 fL (9.4-12.4); Monocytes # 0.5 K/mcL (0.0-1.3); Monocytes % 12.1 %; Neutrophils # 1.8 K/mcL (1.6-8.9); Platelet Count 230 K/mcL (140-400); Red Blood Count 3.14 M/mcL (3.82-4.97); Red Cell Distribution Width 14.6 % (11.5-14.5); Segmented Neutrophils % 42.2 %; White Blood Count 4.3 K/mcL (4.3-11.1)
[2020-06-16 01:59] LABS: BUN/Creatinine Ratio 23 (6-26); Blood Urea Nitrogen 17 mg/dL (8-23); Calcium 8.7 mg/dL (8.6-10.3); Carbon Dioxide 29 mEq/L (23-29); Chloride 104 mEq/L (98-107); Glucose 114 mg/dL (70-105); Magnesium 1.5 mg/dL (1.6-2.6); Osmolality,Calculated 286 (280-300); Phosphorous 2.8 mg/dL (2.7-4.5); Potassium 4.6 mEq/L (3.5-5.1); Sodium 137 mEq/L (136-145); eGFR For African Americans > 60 (> 60); eGFR For Non-African Americans > 60 (> 60)
[2020-06-16 07:13] VITALS: BP 148/88
[2020-06-16] MEDS: lisinopriL 5 MG TABLET PO SCH (08:11)
[2020-06-16] MEDS: Insulin LISPRO 300 UNITS/3 ML VIAL SQ SCH ×2 (08:11→12:52)
[2020-06-16] MEDS: Insulin DETEMIR 100 UNIT/ML X5UNITS SQ SCH (08:13)
== END 2020-06-16 15:05 | DRG 639 ==
LOC: 3BNU 21:18 → EMEROOARM 21:18 → SUATTDRO 06-15 00:46 → 3BNU 06-15 01:20
PROVIDERS: ADMIT Student in an Organized Health Care Education/Training Program; ATTEND Internal Medicine

== ENCOUNTER 2021-10-04 06:59 | Inpatient (IN) ==
[2021-10-04] MEDS ORDERED: Acetaminophen 325 MG TABLET PO ONE (07:24)
[2021-10-04 08:20] LABS: Basophils # 0.1 K/mcL (0.0-0.2); Basophils % 0.8 %; Eosinophils # 0.2 K/mcL (0.0-0.6); Eosinophils % 3.4 %; Hematocrit 36.8 % (35.3-44.9); Immature Granulocytes % 0.3 % (0-4); Lymphocytes # 2.3 K/mcL (0.6-4.6); Lymphocytes % 36.1 %; Mean Corpuscular HGB Conc 32.6 g/dL (31.6-35.5); Mean Corpuscular Hemoglobin 29.6 pg (28.0-33.3); Mean Corpuscular Volume 90.6 fL (83.0-100.0); Mean Platelet Volume 9.5 fL (9.4-12.4); Monocytes # 0.8 K/mcL (0.0-1.3); Monocytes % 12.2 %; Platelet Count 242 K/mcL (140-400); Red Blood Count 4.06 M/mcL (3.82-4.97); Red Cell Distribution Width 13.9 % (11.5-14.5); Segmented Neutrophils % 47.2 %; White Blood Count 6.2 K/mcL (4.3-11.1)
[2021-10-04 08:31] LABS: Alanine Aminotransferase 26 Units/L (7-52); Albumin 3.7 g/dL (3.5-5.7); Albumin/Globulin Ratio 0.8 (1.1-2.2); Alkaline Phosphatase 124 Units/L (34-104); Aspartate Amino Transferase 36 Units/L (13-39); BUN/Creatinine Ratio 20 (6-26); Bilirubin,Total 0.5 mg/dL (0.3-1.0); Blood Urea Nitrogen 21 mg/dL (8-23); Calcium 9.6 mg/dL (8.6-10.3); Carbon Dioxide 29 mEq/L (23-29); Chloride 99 mEq/L (98-107); Globulin 4.5 g/dL (2.4-3.5); Glucose 41 mg/dL (70-105); Osmolality,Calculated 278 (280-300); Potassium 3.9 mEq/L (3.5-5.1); Sodium 134 mEq/L (136-145); Total Protein 8.2 g/dL (6.4-8.9); eGFR For African Americans > 60 (> 60); eGFR For Non-African Americans 50 (> 60)
[2021-10-04 08:34] LABS: Activated Partial Thrombo Time 33.7 Seconds (26.0-36.0)
[2021-10-04 08:53] LABS: Influenza A PCR Negative (Negative); Influenza B PCR Negative (Negative); Resp. Syncytial Virus PCR Negative (Negative)
[2021-10-04 08:54] LABS: SARS-CoV-2 by PCR (In House) Negative (Negative)
[2021-10-04] MEDS ORDERED: *HR* Dextrose 50 % in Water (Syg) 50 ML SYRINGE ONE (09:35)
[2021-10-04] MEDS ORDERED: *HR* Dextrose 50 % in Water (Syg) 50 ML SYRINGE IVP ONE (09:37)
[2021-10-04] MEDS ORDERED: Naloxone 0.4 MG/ML INJ IVP PRN (10:11)
[2021-10-04] MEDS ORDERED: D5% in Water 1,000 ML IVC PRN (10:32)
[2021-10-04] MEDS ORDERED: Dextrose Gel 15 GM/37.5 ML TUBE PO PRN ×2 (10:32)
[2021-10-04] MEDS ORDERED: *HR* Dextrose 50 % in Water (Syg) 50 ML SYRINGE IVP PRN (10:32)
[2021-10-04] MEDS ORDERED: *HR* OxyCODONE/APAP 5/325 TABLET PO PRN (10:40)
[2021-10-04] MEDS ORDERED: Lidocaine HCL 4 ML Topical Solution (Laryng-O-Jet Kit Sterile Pak) TP ONE (13:36)
[2021-10-04] MEDS ORDERED: Ondansetron 4 MG/2 ML VIAL ONE (13:36)
[2021-10-04] MEDS ORDERED: Lidocaine -MPF 2% 5 ML VIAL ONE (13:36)
[2021-10-04] MEDS ORDERED: *HR* Propofol 200 MG/20 ML VIAL IVP ONE (13:36)
[2021-10-04] MEDS ORDERED: *HR* Succinylcholine 200 MG/10 ML VIAL IVP ONE (13:36)
[2021-10-04] MEDS ORDERED: *HR* FentaNYL (PF) 100 MCG/2 ML VIAL ONE (13:36)
[2021-10-04] MEDS ORDERED: Famotidine 20 MG/2 ML VIAL IVP ONE (13:48)
[2021-10-04] MEDS ORDERED: Acetaminophen IV 1,000 MG/100 ML BAG IVPB ONE (13:49)
[2021-10-04] MEDS ORDERED: CeFAZolin Syr 2,000MG/20 ML 2,000 MG/20 ML SYRINGE IVPB ONE ×2 (13:50→14:30)
[2021-10-04] MEDS ORDERED: Ringers Solution, Lactated 1,000 ML IVC SCH (14:00)
[2021-10-04] MEDS ORDERED: Lidocaine/EPI 1:100k 1% 30 ML VIAL ONE (14:18)
[2021-10-04] MEDS ORDERED: EPHEDrine 50 MG/ML VIAL ONE (14:39)
[2021-10-04] MEDS ORDERED: Morphine Sulfate 2 MG/ML SYRINGE IVP PRN (15:22)
[2021-10-04] MEDS ORDERED: Ondansetron 4 MG/2 ML VIAL IVP PRN (15:22)
[2021-10-04] MEDS ORDERED: *HR* OxyCODONE Immed Rel 5 MG TABLET PO PRN (16:13)
[2021-10-04] MEDS ORDERED: Ondansetron ODT 4 MG TAB.RAPDIS SL PRN (16:13)
[2021-10-04] MEDS: Insulin LISPRO 300 UNITS/3 ML VIAL SUBQ SCH (17:40)
[2021-10-04] MEDS: *HR* Heparin 5,000 UNIT/ML VIAL SQ SCH (17:40)
[2021-10-04] MEDS: Ringers Solution, Lactated 1,000 ML IVC SCH (17:54)
[2021-10-05] MEDS: CeFAZolin 2 GM/120 ML BAG IVPB SCH ×2 (00:01→09:15)
[2021-10-05] MEDS: Insulin LISPRO 300 UNITS/3 ML VIAL SUBQ SCH ×5 (01:03→16:02)
[2021-10-05] MEDS: *HR* Heparin 5,000 UNIT/ML VIAL SQ SCH ×2 (05:52→17:13)
[2021-10-05 10:47] LABS: Basophils % 0.4 %; Eosinophils % 0.3 %; Hematocrit 30.8 % (35.3-44.9); Immature Granulocytes % 0.3 % (0-4); Lymphocytes # 1.5 K/mcL (0.6-4.6); Lymphocytes % 20.8 %; Mean Corpuscular HGB Conc 32.5 g/dL (31.6-35.5); Mean Corpuscular Hemoglobin 29.9 pg (28.0-33.3); Mean Corpuscular Volume 91.9 fL (83.0-100.0); Mean Platelet Volume 9.6 fL (9.4-12.4); Monocytes % 13.9 %; Neutrophils # 4.5 K/mcL (1.6-8.9); Platelet Count 234 K/mcL (140-400); Red Blood Count 3.35 M/mcL (3.82-4.97); Red Cell Distribution Width 14.1 % (11.5-14.5); Segmented Neutrophils % 64.3 %; White Blood Count 7.1 K/mcL (4.3-11.1)
[2021-10-05 10:48] VITALS: TEMP 98.3
[2021-10-05] MEDS: Ringers Solution, Lactated 1,000 ML IVC SCH (11:16)
[2021-10-05 11:39] LABS: Calcium 9.1 mg/dL (8.6-10.3); Potassium 5.1 mEq/L (3.5-5.1)
[2021-10-05 15:42] VITALS: BP 120/73; PULSE 82; O2SAT 95
[2021-10-05] MEDS ORDERED: Insulin LISPRO 300 UNITS/3 ML VIAL SUBQ SCH (21:00)
[2021-10-06] MEDS ORDERED: lisinopriL 5 MG TABLET PO SCH (09:00)
== END 2021-10-05 18:27 | DRG 482 ==
LOC: EMEROOARM 06:59 → 4WAOSI 06:59
PROVIDERS: ADMIT Internal Medicine; ATTEND Internal Medicine